=== PATIENT | male | born 1965 | race Caucasian/White ===

== ENCOUNTER 2024-12-27 14:20 | Emergency (ER) | payer MEDICAID, SELFPAY ==
--- OUTSIDE RECORDS SUMMARY | 2024-12-27 14:22 | XMS_ITS | Clinical Summary ---
Author Organization [facility] Address [address] [place] [address] Care Team Providers Care Gray Mixing Operator Name Role Phone Zacarias Wetzel MD Primary Care Provider + Allergies No known active allergies Medications No known medications Active Problems No known active problems Resolved Problems Problem Noted Date Diagnosed Date Resolved Date Anxiety state, unspecified 03/20/2015 1 12/01/2016 Major depressive disorder, r ecurrent episode, moderate 05/21/2009 08/18/2011 Major depression in partial remission 10/11/2008 09/30/2017 ADD (attention deficit disorder) 09/30/2017 Encounters Date Type Department Care Team Description 12/26/2024 Nurse Triage [facility] [address] [place] [address] Votel, Zacarias Gilbert MD Abdominal Pain from Last 3 Months Immunizations Name Administration Dates Next Due Influenza, IIV3 (Age 6-35 mos) 07/15/2010 Influenza, IIV3 (Age >=3 years) 12/13/2012,10/30,07/15/2010 Td (Age >=7 Years) 02/20/2022 Tdap 04/23/2010 Zoster (Shingrix-RZV, recombinant) 08/25/2019, Family History Medical History Relation Name Comments Good Health Daughter 2 Heart Disease Father stents Other Father dementia Good Health Mother Diabetes Paternal Grandfather Heart Disease Paternal Grandfather Good Health Sister 3 Good Health Sister 4 Other Son 2 ADHD Relation Name Status Comments Daughter 1 Alive Daughter 2 Father Alive Mother Alive Paternal Grandfather Sister 1 Alive Sister 2 Alive Sister 3 Sister 4 Son 1 Alive Son 2 Social History Tobacco Use Types Packs/Day Years Used Date Smoking Tobacco: Never Smokeless Tobacco: Never Tobacco Cessation:Counseling Given: Yes Alcohol Use Standard Drinks/Week Comments Yes 0 (1 standard drink = 0.6 oz pur e alcohol) 2-3 drinks per week PHQ-2 Answer Date Recorded PHQ-2 TOTAL SCORE 0 11/24/2023 Social Connections Answer Date Recorded Frequency of Communication with Friends and Fami ly Not on file 10/22/2021 Financial Resource Strain Answer Date R ecorded Difficulty of Paying Living Expenses Not on file 10/22/2021 Difficulty of Paying Living Expenses Not on file 10/22/2021 Sex and Gender Information Value Date Recorded Sex Assigned at Not on file Legal Sex Male 6:02 AM SUPERVISOR PUBLICATIONS PRODUCTION Gender Identity Not on file Sexual Orientation Not on file 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 Not on file Not on file Obstetrics History Last Filed Vital Signs Vital Sign Reading Time Taken Comments Blood Pressure 126/85 11/24/2023 3:25 PM SUPERVISOR PUBLICATIONS PRODUCTION Pulse 58 11/24/2023 3:25 PM SUPERVISOR PUBLICATIONS PRODUCTION Temperature 36.9 C (98.4 F) 02/20/2022 4:16 PM CDT Respiratory Rate 18 08/18/2011 11:5 0 AM CDT Oxygen Saturation 98% 11/24/2023 3:25 PM SUPERVISOR PUBLICATIONS PRODUCTION Inhaled Oxygen Concentration - - Weight 93.4 kg (205 lb 14.4 oz) 11/24/2023 3:25 PM SUPERVISOR PUBLICATIONS PRODUCTION Height 174 cm (5' 8.5) 11/24/2023 3:25 PM SUPERVISOR PUBLICATIONS PRODUCTION Body Mass Index 30.85 11/24/2023 3:25 PM SUPERVISOR PUBLICATIONS PRODUCTION Plan of Treatment Upcoming Encounters Date Type Department Care Team (Late st Contact Info) Description 01/05/2025 7:55 AM CDT Office Visit [facility] [address] [facility] [place] [address] VoteZacarias silva MD [address] [place] [address] Health Maintenance Due Date Last Done Comments HIV for age 15-65 1978 Pneumococcal series for age 50+ (1 of 1 - PCV) 2013 Fecal testing non-DNA (FIT,FOBT,iFOBT) for age 45-75 03/25/2023 03/25/2022, 05/22/2016, 02/11/2014 COVID-19 vaccine series ( season) 2024 10/24/2021, 01/02/2021, 12/05/2020 Influenza for age 50-64 06/26/2024 12/13/19 13, 10/30/2011, 07/15/2010 BMI (ht and wt on same day) for age 18+ 11/24/2024 11/24/2023, 02/20/2022, 10/22/2021, Additional history exists Depression screening for age 12+ 11/24/2024 11/24/2023, 02/20/2022, 10/22/2021, Additional history exists Lipids for age 45-75 02/20/2027 02/20/2022, 05/15/2016, 02/12/2015, Additional history exists Tetanus booster 02/21/2032 02/20/2022, 04/23/2010 RSV vaccine for adults or (1 - 1-dose 75+ series) 2038 Tdap Completed 04/23/2010 Hepatitis C screening for ag e 18-79 Completed 02/12/2015 Zoster (shingles) series for age 50+ Completed 08/25/2019, 05/31/2019 Procedures Procedure Name Priority Date/Time Associated Diagnosis Comments LIPID PANEL W REFLEX MEASURED LDL Routine 02/20/2022 4:43 PM CDT Lipid screening OCCULT BLOOD IFOBT STOOL Routine 05/22/2016 4:12 PM CDT Screening for colon cancer ANTI HCV Routine 02/12/2015 8:38 AM CDT Need for hepatitis C screening test from Last 3 Months or Most Recently Relevant to Health Maintenance Results * (ABNORMAL) LIPID PANEL W REFLEX MEASURED LDL (02/20/2022 4:43 PM CDT) CHOLESTEROL,TOTAL 195 100 - 199 mg/dL 02/21/2022 6:03 PM CDT [facility] TRAL LABORATORY TRIGLYCERIDES 84 <150 mg/dL 02/21/2022 6:03 PM CDT [facility] TRAL LABOR[facility]ORY HDL CHOLESTEROL 41 >40 mg/dL 6:03 PM CDT [facility] TRAL [facility] NON-HDL CHOLESTEROL 154(H) <145 mg/dl 02/21/2022 6:03 PM CDT [facility] TRAL [facility] CHOL/HDL RATIO 4.76(H) <4.50 02/21/2022 6:03 PM CDT [facility] TRAL LAB[facility] LDL CHOLESTEROL 137(H) <=130 mg/dL 02/21/2022 6:03 PM CDT [facility] TRAL [facility] VLDL CHOLESTEROL 17 <=30 mg/dL 02/21/2022 6:03 PM CDT [facility] TRAL LABORATORY PROVIDER ORDERED STATUS RANDOM 02/21/2022 6:03 PM CDT [facility] TRA LABORATORY Blood BLOOD SPECIMEN / Unknown Venipuncture / Unknown 02/20/2022 4:43 PM CDT 02/20/2022 4:44 PM CDT Zacarias Wetzel MD CHEMISTRY Final Re sult [facility] [address] [place] [address], [place] * OCCULT BLOOD IFOBT STOOL (05/22/2016 4:12 PM CDT) STOOL BLOOD ,IFOBT Negative Negative 05/22/2016 4:19 PM CDT [facility] Stool STOOL SPECIMEN / Unknown Non-Blood / Unknown 05/22/2016 4:12 PM CDT 05/22/2016 4:12 PM CDT Zacarias Wetzel MD LABORATORY Final Re sult [facility] [address] [place] [address], [place] [phone] * ANTI HCV (02/12/2015 8:38 AM CDT) HEPATITIS C ANTIBODY Non-Reacti ve Non-Reacti ve 02/12/2015 1:34 PM CDT [facility] TRAL LABORATORY Blood specimen (specimen) BLOOD SPECIMEN / Unknown Venipuncture / Unknown 02/12/2015 8:38 AM CDT 02/12/2015 9:48 AM CDT Narrative [facility] - 02/12/2015 1:34 PM CDT Antibodies to HCV not detected; does not exclude the possibility of exposure to HCV. us Zacarias Wetzel MD SEND OUTS Final Re sult [facility] [address] [place] [address], from Last 3 Months or Most Recently Relevant to Health Maintenance Insurance [employer] CHO[employer] Care Teams Gray Mixing Operator Relationship Specialty Start Date End Date JeffteZacarias silva MD [address] [place] [address] PCP - General Family Practice 03/09/12
[2024-12-27 14:25] VITALS: PULSE 68; RESP 20; TEMP 36.4; O2SAT 98
--- NOTE | 2024-12-27 16:13 | ED.ABDPAIN ---
HPI - Abdominal Pain General Time Seen by Provider: 16:13 Date Seen: 12/27/24 Chief Complaint: Abdominal Pain Stated Complaint: abdomen pain Time Seen by Provider: 12/27/24 16:12 Source: patient, RN notes reviewed and old records reviewed Mode of arrival: ambulatory Limitations: no limitations History of Present Illness HPI narrative: 59-year-old male who presents today with abdominal pain. This is been going on for 2 months. Exam Const: Vital Signs, click to edit/add: Vital Signs - 24 hr 12/27/24 14:25 Temperature 97.5 F L Pulse Rate [Pulse Oximeter] 68 Respiratory Rate 20 Pulse Oximetry 98 Oxygen Delivery Me thod Room Air Course Course ED Course: Reviewed most recent primary care visit from October 2023 which was a routine physical, vision and hearing intact, that time not on any prescriptions. Vital Signs Vital signs: Initial Vital Signs Temperature 97.5 F L 12/27/24 14:25 Temperature Source Temporal Artery Scan 12/27/24 14:25 Pulse Rate 68 12/27/24 14:25 Respiratory Rate 20 12/27/24 14:25 Pulse Oximetry 98 12/27/24 14:25 Oxygen Delivery Method Room Air 12/27/24 14:25 Vital Signs Temperature 97.5 F L 12/27/24 14:25 Pulse Rate 68 12/27/24 14:25 Respiratory Rate 20 12/27/24 14:25 Pulse Oximetry 98 12/27/24 14:25 Oxygen Delivery Method Room Air 12/27/24 14:25 Temperature 97.5 F L 12/27/24 14:25 Pulse Rate 68 12/27/24 14:25 Respiratory Rate 20 12/27/24 14:25 Pulse Oximetry 98 12/27/24 14:25 Oxygen Delivery Method Room Air 12/27/24 14:25
--- OUTSIDE RECORDS SUMMARY | 2024-12-27 16:19 | XMS_ITS | Clinical Summary ---
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 Not on file Not on file Obstetrics History Last Filed Vital Signs Vital Sign Reading Time Taken Comments Blood Pressure 126/85 11/24/2023 3:25 PM DISASTER DIRECTOR Pulse 58 11/24/2023 3:25 PM DISASTER DIRECTOR Temperature 36.9 C (98.4 F) 02/20/2022 4:16 PM CDT Respiratory Rate 18 08/18/2011 11:5 0 AM CDT Oxygen Saturation 98% 11/24/2023 3:25 PM DISASTER DIRECTOR Inhaled Oxygen Concentration - - Weight 93.4 kg (205 lb 14.4 oz) 11/24/2023 3:25 PM DISASTER DIRECTOR Height 174 cm (5' 8.5) 11/24/2023 3:25 PM DISASTER DIRECTOR Body Mass Index 30.85 11/24/2023 3:25 PM DISASTER DIRECTOR Plan of Treatment Upcoming Encounters Date Type Department Care Team (Late st Contact Info) Description 01/05/2025 7:55 AM CDT Office Visit [facility] [address] [facility] [place] [address] VoteZacarias silva MD [address] [place] [address] Health Maintenance Due Date Last Done Comments [...] - 199 mg/dL 02/21/2022 6:03 PM CDT [facility] TRAL LABORATORY TRIGLYCERIDES 84 <150 mg/dL 02/21/2022 6:03 PM CDT [facility] TRAL LAB[facility]ORY HDL CHOLESTEROL 41 >40 mg/dL 6:03 PM CDT [facility] TRAL [facility] NON-HDL CHOLESTEROL 154(H) <145 mg/dl 02/21/2022 6:03 PM CDT [facility] TRAL LAB[facility]ORY CHOL/HDL RATIO 4.76(H) <4.50 02/21/2022 6:03 PM CDT [facility] TRAL [facility] LDL CHOLESTEROL 137(H) <=130 mg/dL 02/21/2022 6:03 PM CDT [facility] TRAL [facility] VLDL CHOLESTEROL 17 <=30 mg/dL 02/21/2022 6:03 PM CDT [facility] TRAL LABORATORY PROVIDER ORDERED STATUS RANDOM 02/21/2022 6:03 PM CDT [facility] TRA [facility] Blood BLOOD SPECIMEN / Unknown Venipuncture / Unknown 02/20/2022 4:43 PM CDT 02/20/2022 4:44 PM CDT Zacarias Weztel MD CHEMISTRY Final Re sult [facility] [address] [place] [address], [place] * OCCULT BLOOD IFOBT STOOL (05/22/2016 4:12 PM CDT) STOOL BLOOD ,IFOBT Negative Negative 05/22/2016 4:19 PM CDT [facility] Stool STOOL SPECIMEN / Unknown Non-Blood / Unknown 05/22/2016 4:12 PM CDT 05/22/2016 4:12 PM CDT Zacarias Wetzel MD LABORATORY Final Re sult [facility] [address] [place] [address], [place] [phone] * ANTI HCV (02/12/2015 8:38 AM CDT) HEPATITIS C ANTIBODY Non-Reacti ve Non-Reacti ve 02/12/2015 1:34 PM CDT [facility] TRAL [facility] Blood specimen (specimen) BLOOD SPECIMEN / Unknown Venipuncture / Unknown 02/12/2015 8:38 AM CDT 02/12/2015 9:48 AM CDT Narrative [facility] - 02/12/2015 1:34 PM CDT Antibodies to HCV not detected; does not exclude the possibility of exposure to HCV. us Zacarias Wetzel MD SEND OUTS Final Re sult [facility] [address] [place] [address], from Last 3 Months or Most Recently Relevant to Health Maintenance Insurance [employer] CHOICE Care Teams Crm Technical Lead Relationship Specialty Start Date End Date JeffteZacarias silva MD [address] [place] [address] PCP - General Family Practice 03/09/12
== END 2024-12-27 16:44 | disposition left against medical advice (07) ==
LOC: ED 16:17
DX: Z53.21 Procedure and treatment not carried out due to patient leaving prior to being seen by health care provider (principal)

== ENCOUNTER 2024-12-29 05:21 | Emergency (ER) | payer MEDICAID, SELFPAY ==
--- OUTSIDE RECORDS SUMMARY | 2024-12-29 05:24 | XMS_ITS | Clinical Summary ---
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 Not on file Not on file Obstetrics History Last Filed Vital Signs Vital Sign Reading Time Taken Comments Blood Pressure 126/85 11/24/2023 3:25 PM BACK TUFTER Pulse 58 11/24/2023 3:25 PM BACK TUFTER Temperature 36.9 C (98.4 F) 02/20/2022 4:16 PM CDT Respiratory Rate 18 08/18/2011 11:5 0 AM CDT Oxygen Saturation 98% 11/24/2023 3:25 PM BACK TUFTER Inhaled Oxygen Concentration - - Weight 93.4 kg (205 lb 14.4 oz) 11/24/2023 3:25 PM BACK TUFTER Height 174 cm (5' 8.5) 11/24/2023 3:25 PM BACK TUFTER Body Mass Index 30.85 11/24/2023 3:25 PM BACK TUFTER Plan of Treatment Upcoming Encounters Date Type Department Care Team (Late st Contact Info) Description 01/05/2025 7:55 AM CDT Office Visit [facility] [address] [facility] [place] [address] VoteZacarias silva MD [address] [place] [address] Health Maintenance Due Date Last Done Comments [...] - 199 mg/dL 02/21/2022 6:03 PM CDT [facility] TRAL LABORATORY TRIGLYCERIDES 84 <150 mg/dL 02/21/2022 6:03 PM CDT [facility] TRAL LAB[facility] HDL CHOLESTEROL 41 >40 mg/dL 6:03 PM CDT [facility] TRAL LAB[facility]ORY NON-HDL CHOLESTEROL 154(H) <145 mg/dl 02/21/2022 6:03 PM CDT [facility] TRAL LAB[facility]ATORY CHOL/HDL RATIO 4.76(H) <4.50 02/21/2022 6:03 PM CDT [facility] TRAL [facility] LDL CHOLESTEROL 137(H) <=130 mg/dL 02/21/2022 6:03 PM CDT [facility] TRAL [facility] VLDL CHOLESTEROL 17 <=30 mg/dL 02/21/2022 6:03 PM CDT [facility] TRAL LABORATORY PROVIDER ORDERED STATUS RANDOM 02/21/2022 6:03 PM CDT [facility] Blood BLOOD SPECIMEN / Unknown Venipuncture / Unknown 02/20/2022 4:43 PM CDT 02/20/2022 4:44 PM CDT Zacarias Wetzel MD CHEMISTRY Final Re sult [facility] [address] [place] [address], [place] * OCCULT BLOOD IFOBT STOOL (05/22/2016 4:12 PM CDT) STOOL BLOOD ,IFOBT Negative Negative 05/22/2016 4:19 PM CDT [facility] Stool STOOL SPECIMEN / Unknown Non-Blood / Unknown 05/22/2016 4:12 PM CDT 05/22/2016 4:12 PM CDT Zacarias Wetzel MD LABORATORY Final Re sult [facility] [address] [place] [address], [place] [phone] * ANTI HCV (02/12/2015 8:38 AM CDT) HEPATITIS C ANTIBODY Non-Reacti ve Non-Reacti ve 02/12/2015 1:34 PM CDT [facility] TRAL [facility]ORY Blood specimen (specimen) BLOOD SPECIMEN / Unknown Venipuncture / Unknown 02/12/2015 8:38 AM CDT 02/12/2015 9:48 AM CDT Narrative [facility] - 02/12/2015 1:34 PM CDT Antibodies to HCV not detected; does not exclude the possibility of exposure to HCV. us Zacarias Wetzel MD SEND OUTS Final Re sult [facility] [address] [place] [address], from Last 3 Months or Most Recently Relevant to Health Maintenance Insurance [employer]ICE Care Teams Database Administrator Relationship Specialty Start Date End Date JeffteZacarias silva MD [address] [place] [address] PCP - General Family Practice 03/09/12
[2024-12-29 05:25] VITALS: BP 156/80; PULSE 63; RESP 16; TEMP 35.7; O2SAT 96; BMI 30.3
--- OUTSIDE RECORDS SUMMARY | 2024-12-29 06:09 | XMS_ITS | Clinical Summary ---
Author Organization 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 Not on file Not on file Obstetrics History Last Filed Vital Signs Vital Sign Reading Time Taken Comments Blood Pressure 126/85 11/24/2023 3:25 PM TERMITE HELPER Pulse 58 11/24/2023 3:25 PM TERMITE HELPER Temperature 36.9 C (98.4 F) 02/20/2022 4:16 PM CDT Respiratory Rate 18 08/18/2011 11:5 0 AM CDT Oxygen Saturation 98% 11/24/2023 3:25 PM TERMITE HELPER Inhaled Oxygen Concentration - - Weight 93.4 kg (205 lb 14.4 oz) 11/24/2023 3:25 PM TERMITE HELPER Height 174 cm (5' 8.5) 11/24/2023 3:25 PM TERMITE HELPER Body Mass Index 30.85 11/24/2023 3:25 PM TERMITE HELPER Plan of Treatment Upcoming Encounters Date Type Department Care Team (Late st Contact Info) Description 01/05/2025 7:55 AM CDT Office Visit [facility] [address] [place] [address] VoteZacarias silva MD [address] [place] [address] Health Maintenance Due Date Last Done Comments [...] - 199 mg/dL 02/21/2022 6:03 PM CDT [facility] TRAL LABORATORY TRIGLYCERIDES 84 <150 mg/dL 02/21/2022 6:03 PM CDT [facility] TRAL LABORATORY HDL CHOLESTEROL 41 >40 mg/dL 6:03 PM CDT [facility] TRAL LAB[facility]ORY NON-HDL CHOLESTEROL 154(H) <145 mg/dl 02/21/2022 6:03 PM CDT [facility] TRAL LAB[facility]ORY CHOL/HDL RATIO 4.76(H) <4.50 02/21/2022 6:03 PM CDT [facility] TRAL [facility] LDL CHOLESTEROL 137(H) <=130 mg/dL 02/21/2022 6:03 PM CDT [facility] TRAL LAB[facility] VLDL CHOLESTEROL 17 <=30 mg/dL 02/21/2022 6:03 PM CDT [facility] TRAL LABOR[facility]ORY PROVIDER ORDERED STATUS RANDOM 02/21/2022 6:03 PM CDT [facility] TRA [facility] Blood BLOOD SPECIMEN / Unknown Venipuncture / Unknown 02/20/2022 4:43 PM CDT 02/20/2022 4:44 PM CDT Zacarias Wetzel MD CHEMISTRY Final Re sult [facility] [address] [place] [address], [place] * OCCULT BLOOD IFOBT STOOL (05/22/2016 4:12 PM CDT) STOOL BLOOD ,IFOBT Negative Negative 05/22/2016 4:19 PM CDT [facility] Stool STOOL SPECIMEN / Unknown Non-Blood / Unknown 05/22/2016 4:12 PM CDT 05/22/2016 4:12 PM CDT Zacarias Wetzel MD LABORATORY Final Re sult [facility] [address] [place] [address], [place] [phone] * ANTI HCV (02/12/2015 8:38 AM CDT) HEPATITIS C ANTIBODY Non-Reacti ve Non-Reacti ve 02/12/2015 1:34 PM CDT [facility] TRAL LABORATORY Blood specimen (specimen) BLOOD SPECIMEN / Unknown Venipuncture / Unknown 02/12/2015 8:38 AM CDT 02/12/2015 9:48 AM CDT Narrative [facility] - 02/12/2015 1:34 PM CDT Antibodies to HCV not detected; does not exclude the possibility of exposure to HCV. us Zacarias Wetzel MD SEND OUTS Final Re sult [facility] [address] [place] [address], from Last 3 Months or Most Recently Relevant to Health Maintenance Insurance [employer] Care Teams Staff Midwife/Apprenticeship Director Relationship Specialty Start Date End Date JeffteZacarias silva MD [address] [place] [address] PCP - General Family Practice 03/09/12
[2024-12-29 06:16] LABS: Basophils Absolute Auto 0.02 K/uL (0.00-0.30); Basophils Percent Auto 0.4 % (0.0-3.0); Eosinophils Percent Auto 1.8 % (0.0-7.0); Hematocrit 43.3 % (37.0-53.0); Hemoglobin* 15.8 gm/dL (13.5-17.5); Lymphocytes Absolute Auto 2.24 K/uL (0.90-2.90); Lymphocytes Percent Auto 40.7 % (20-44); Mean Corpuscular HGB Conc 37 gm/dL (32-36); Mean Corpuscular Hemoglobin 32 pg (26-34); Mean Corpuscular Volume 89 fL (80-100); Monocytes Percent Auto 10.3 % (0.0-11.0); Neutrophils Absolute Auto 2.58 K/uL (1.7-7.0); Neutrophils Percent Auto 46.8 % (42.0-72.0); Platelet Count* 198 K/uL (140-440); RDW Coefficient of Variation % 12.3 % (11.5-15.5); Red Blood Count 4.88 m/uL (4.30-5.90); White Blood Count* 5.51 K/uL (4.50-11.00)
[2024-12-29 06:18] LABS: Slide Review Reflex No
[2024-12-29 06:33] LABS: Albumin* 4.7 g/dL (3.3-5.0); Chloride* 104 mmol/L (96-114)
[2024-12-29 06:34] LABS: Sodium* 138 mmol/L (135-149)
[2024-12-29 06:36] LABS: Alkaline Phosphatase* 38 U/L (40-150); Anion Gap 9 mEq/L (7-15); Aspartate Amino Transferase* 23 U/L (12-35); Bilirubin Direct* 0.2 mg/dL (0.0-0.5); Bilirubin Total* 0.8 mg/dL (0.1-1.5); Blood Urea Nitrogen* 20 mg/dL (7-30); Calcium* 9.2 mg/dL (8.4-10.6); Carbon Dioxide* 25 mmol/L (20-32); Creatinine* 0.8 mg/dL (0.5-1.5); Est. Creatinine Clearance* 77.57; Estimated Glomerular Filt Rate 101 ml/min; Glucose* 108 mg/dL (60-115); Total Protein* 7.4 g/dL (6.0-8.3)
[2024-12-29 06:37] LABS: Alanine Aminotransferase* 31 U/L (4-50); Lipase* 35 U/L (23-300)
--- NOTE | 2024-12-29 06:46 | ED.ABDPAIN ---
HPI - Abdominal Pain General Date Seen: 12/29/24 Chief Complaint: Abdominal Pain Stated Complaint: pain in lower abdomen Time Seen by Provider: 12/29/24 05:41 Source: patient Mode of arrival: ambulatory Limitations: no limitations History of Present Illness HPI narrative: Patient is a 59-year-old male who comes in during the night with a one-month history of pain in his lower abdomen. Apparently he called the [facility] for an appointment a couple of weeks ago and they told him to go to the emergency room. The pain is a bit more severe now than it has been in the past. It is moved from his suprapubic area to the left lower quadrant. He has some burning with urination. No hematuria or frequency. No concern about STD exposure. His pain is a bit worse today after doing some shoveling yesterday. He also reports one episode of loose stool every morning. This comes on somewhat urgently. It does not seem to matter what he eats or drinks. No black or bloody stools. His abdominal pain typically feels better after a bowel movement. Related Data Allergies Allergy/AdvReac Type Severity Reaction Status Date / Time No Known Drug Allergies Allergy Verified 12/29/24 05:31 Review of Systems Narrative Review of systems is outlined above otherwise noted to be negative. PFSH PFS Social History Non-prescribed substance use: denies use Exam Narrative: Exam Narrative: Vitals noted. HEENT: Conjunctiva clear. Neck is supple without adenopathy. Lungs: Clear to auscultation in all curtis. No wheezes, rales, rhonchi. Heart: Regular rate and rhythm without murmur. Abdomen: Soft and nontender. No guarding, rigidity, rebound. Bowel sounds are normal. No palpable masses. No testicular tenderness. No hernias. Mild suprapubic tenderness. No CVA tenderness. Extremities: No cyanosis or edema. Good distal pulses. Skin: No abnormalities noted of the exposed skin. Neurologic: Awake, alert, fully oriented. Neurologic exam is nonfocal. Const: Vital Signs, click to edit/add: Vital Signs - 24 hr 12/29/24 05:25 Temperature 96.2 F L Pulse Rate [Left P ulse Oximeter] 63 Respiratory Rate 16 Blood Pressure [Ri ght Upper Arm] 156/80 H Pulse Oximetry 96 Oxygen Delivery Me thod Room Air Course Course ED Course: Patient seen and examined. Labs are ordered. Reevaluation(s) Reevaluation #1: CBC, BMP, LFTs, lipase, urinalysis are all normal. After the fact he mentioned that he has spent some time with a [place] woman well he lies vacationing in [place] and on one occasion the condom broke. He is having no penile discharge but would like to have screening for gonorrhea and chlamydia done. We did add that on to his urine and those results will go to his PCP. I think he has some component of irritable bowel with his emergent diarrhea her once a day every morning. I have suggested adding a fiber supplement and Imodium and further discussion with his PCP. Vital Signs Vital signs: Initial Vital Signs Temperature 96.2 F L 12/29/24 05:25 Temperature Source Temporal Artery Scan 12/29/24 05:25 Pulse Rate 63 12/29/24 05:25 Pulse Rhythm Regular 12/29/24 05:25 Respiratory Rate 16 12/29/24 05:25 Blood Pressure 156/80 H 12/29/24 05:25 Blood Pressure Mean 105 12/29/24 05:25 Blood Pressure Position Sitting 12/29/24 05:25 Pulse Oximetry 96 12/29/24 05:25 Oxygen Delivery Method Room Air 12/29/24 05:25 Vital Signs Temperature 96.2 F L 12/29/24 05:25 Pulse Rate 63 12/29/24 05:25 Respiratory Rate 16 12/29/24 05:25 Blood Pressure 156/80 H 12/29/24 05:25 Pulse Oximetry 96 12/29/24 05:25 Oxygen Delivery Method Room Air 12/29/24 05:25 Temperature 96.2 F L 12/29/24 05:25 Pulse Rate 63 12/29/24 05:25 Respiratory Rate 16 12/29/24 05:25 Blood Pressure 156/80 H 12/29/24 05:25 Pulse Oximetry 96 12/29/24 05:25 Oxygen Delivery Method Room Air 12/29/24 05:25 MDM - Abdominal Pain Lab Data Labs: Lab Results 12/29/24 12/29/24 12/29/24 Range/Units 06:05 06:55 07:23 WBC 5.51 (4.50-11.00) K/uL RBC 4.88 (4.30-5.90) m/uL Hgb 15.8 (13.5-17.5) gm/dL Hct 43.3 (37.0-53.0) % MCV 89 (80-100) fL MCH 32 (26-34) pg MCHC 37 H (32-36) gm/dL RDW Coeff of Remi 12.3 (11.5-15.5) % Plt Count 198 (140-440) K/uL Neut % (Auto) 46.8 (42.0-72.0) % Lymph % (Auto) 40.7 (20-44) % [place] % (Auto) 10.3 (0.0-11.0) % Eos % (Auto) 1.8 (0.0-7.0) % Baso % (Auto) 0.4 (0.0-3.0) % Neut # (Auto) 2.58 (1.7-7.0) K/uL Lymph # (Auto) 2.24 (0.90-2.90) K/uL [place] # (Auto) 0.60 (0.00-0.90) K/UL Eos # (Auto) 0.10 (0.00-0.50) K/uL Baso # (Auto) 0.02 (0.00-0.30) K/uL Abs Immat Gran (auto) 0.00 (0.00-0.30) K/uL Imm/Tot Granulo (auto) 0.0 % Sodium 138 (135-149) mmol/L Potassium 4.0 (3.6-5.1) mmol/L Chloride 104 (96-114) mmol/L Carbon Dioxide 25 (20-32) mmol/L Anion Gap 9 (7-15) mEq/L BUN 20 (7-30) mg/dL Creatinine 0.8 (0.5-1.5) mg/dL Estimated Creat Clear 77.57 Estimated GFR 101 ml/min Glucose 108 (60-115) mg/dL Calcium 9.2 (8.4-10.6) mg/dL Total Bilirubin 0.8 (0.1-1.5) mg/dL Direct Bilirubin 0.2 (0.0-0.5) mg/dL AST 23 (12-35) U/L ALT 31 (4-50) U/L Alkaline Phosphatase 38 L (40-150) U/L Total Protein 7.4 (6.0-8.3) g/dL Albumin 4.7 (3.3-5.0) g/dL Lipase 35 (23-300) U/L Urine Color Yellow (Yellow) Urine Appearance Clear (Clear) Urine pH 6.0 (5.0-8.5) Ur Specific [place] <= 1.005 (1.000-1.030) Urine Protein Negative (Negative) Urine Glucose (UA) Negative (Negative) Urine Ketones Negative (Negative) Urine Blood Negative (Negative) Urine Nitrite Negative (Negative) Urine Bilirubin Negative (Negative) Urine Urobilinogen 0.2 (0.2-1.0) Ur Leukocyte Esterase Negative (Negative) Lab Acknowledgement Test Added Discharge Plan Discharge Clinical Impression: Abdominal pain Patient Disposition: Home, Self-Care Condition: Stable Additional Instructions: Start Benefiber 2 tsp daily and Imodium 1-2 pills in the a.m. to help with morning diarrhea. Follow up with Dr Wetzel for a recheck and check of your STD test results. Use Tylenol or Ibuprofen for pain and fever. Follow Up/Referrals: Zacarias Wetzel MD [Primary Care Provider] - Stand Alone Forms: [employer] Info Instructions
[2024-12-29 07:03] LABS: Appearance Urine Clear (Clear); Bilirubin Urine Negative (Negative); Blood Urine Negative (Negative); Color Urine Yellow (Yellow); Glucose Urine Negative (Negative); Ketones Urine Negative (Negative); Leukocyte Esterase Urine Negative (Negative); Nitrite Urine Negative (Negative); Protein Urine Negative (Negative); Specific Gravity Urine <= 1.005 (1.000-1.030); Urobilinogen Urine 0.2 (0.2-1.0)
[2024-12-29 09:17] LABS: Chlamydia DNA Amplified* NOT DETECTED (No Detected); GC DNA Amplified* NOT DETECTED (No Detected)
== END 2024-12-29 07:34 | disposition home or self-care (01) ==
PROVIDERS: Emergency Provider Family Medicine; PCP Family Medicine
DX: R10.9 Unspecified abdominal pain (principal)
CPT/HCPCS: 36415; 80048; 80076; 81003; 83690; 85025; 87491; 87591; 99282; 99283; 99284